=== PATIENT | female | born 1935 | race African-American/Black ===

== ENCOUNTER 2018-07-25 16:53 | Inpatient (IN) | payer MEDICARE, MEDICAID ==
[~2018-07-25] VITALS: Ht 167.6 cm; Wt 52.2 kg
[2018-07-25] MEDS ORDERED: SODIUM CHLORIDE 0.9% 500 ML IV ONE (17:19)
[2018-07-25] MEDS ORDERED: DEXTROSE 50% WATER 50ML SYRINGE IV ONE (17:30)
[2018-07-25 18:02] LABS: BASOPHILS % 0.4 % (0.0-2.0); EOSINOPHILS % 0.6 % (0.0-5.0); HEMATOCRIT. 38.4 % (36.0-48.0); HEMOGLOBIN. 12.3 g/dL (12.0-16.0); LYMPHOCYTES % 17.6 % (20.0-50.0); MEAN CORPUSCULAR HEMOGLOBIN 26.2 pg (28.0-32.0); MEAN CORPUSCULAR VOLUME 82.1 fL (81.0-99.0); MONOCYTES % 6.4 % (2.0-8.0); PLATELET 213 x1000/uL (130-400); RED BLOOD CELL COUNT 4.67 mill/uL (4.2-5.4); RED CELL DISTRIBUTION WIDTH 15.2 % (11.6-14.6)
[2018-07-25 18:08] LABS: CHLORIDE 104 mEq/L (98-107)
[2018-07-25 18:10] LABS: INR 1.1; PARTIAL THROMBOPLASTIN TIME 23.8 sec (23.4-31.0); PROTHROMBIN TIME 10.7 sec (9.1-11.1)
[2018-07-25 22:16] VITALS: BP 150/56
[2018-07-26] VITALS (7 sets, daily range): BP systolic 116–137; BP diastolic 40–55
[2018-07-26] MEDS ORDERED: DEXTROSE 50% WATER 50ML SYRINGE IV PRN (00:30)
[2018-07-26] MEDS ORDERED: ACETAMINOPHEN 325MG TABLET PO PRN (00:30)
[2018-07-26] MEDS ORDERED: MELO-106 PO (00:43)
[2018-07-26] MEDS ORDERED: BENA40TA9 PO (00:43)
[2018-07-26] MEDS ORDERED: LOPE2TAB26 PO (00:43)
[2018-07-26] MEDS ORDERED: FLUO-123 PO (00:43)
[2018-07-26] MEDS ORDERED: GLIP10TA10 PO (00:43)
[2018-07-26] MEDS ORDERED: HYDR-459 PO (00:44)
[2018-07-26] MEDS ORDERED: SIMV20TA6 PO (00:44)
[2018-07-26] MEDS ORDERED: DEXT 5%/0.45% NACL 1000ML 1,000 ML IV SCH (02:00)
[2018-07-26] MEDS: BLOOD SUGAR DIAGNOSTIC STRIP TEST SCH ×4 (05:59→21:10)
[2018-07-26 07:16] LABS: BASOPHILS % 0.5 % (0.0-2.0); EOSINOPHILS % 1.4 % (0.0-5.0); HEMATOCRIT. 35.7 % (36.0-48.0); HEMOGLOBIN. 11.5 g/dL (12.0-16.0); LYMPHOCYTES % 22.7 % (20.0-50.0); MEAN CORPUSCULAR HEMOGLOBIN 26.3 pg (28.0-32.0); MEAN CORPUSCULAR VOLUME 81.5 fL (81.0-99.0); MEAN PLATELET VOLUME 9.4 fl (7.4-10.4); MONOCYTES % 8.2 % (2.0-8.0); NEUTROPHILS % 67.2 % (40.0-76.0); PLATELET 186 x1000/uL (130-400); RED BLOOD CELL COUNT 4.38 mill/uL (4.2-5.4)
[2018-07-26 07:39] LABS: CHLORIDE 114 mEq/L (98-107)
[2018-07-26 07:48] LABS: T4 FREE 0.93 ng/dL (0.76-1.46)
[2018-07-27] VITALS: BP 107/41
[2018-07-27 04:00] VITALS: BP 132/52
[2018-07-27] MEDS: BLOOD SUGAR DIAGNOSTIC STRIP TEST SCH (07:28)
[2018-07-27 08:00] VITALS: BP 138/52
[2018-07-27 12:00] VITALS: BP 141/64
[2018-07-27 14:22] VITALS: BP 141/64
== END 2018-07-27 16:30 | disposition home or self-care (01) | DRG 639 ==
LOC: ER 17:21 → EDBEDREQ 18:15 → EDBEDREQTM 18:15 → ENRESERV 19:26 → 7WST 20:50
PROVIDERS: ADMIT Internal Medicine; ATTEND Internal Medicine
DX: E11.649 Type 2 diabetes mellitus with hypoglycemia without coma (principal); E78.00 Pure hypercholesterolemia, unspecified; E78.5 Hyperlipidemia, unspecified; I10 Essential (primary) hypertension; F17.210 Nicotine dependence, cigarettes, uncomplicated; T50.995A Adverse effect of other drugs, medicaments and biological substances, initial encounter; Y92.89 Other specified places as the place of occurrence of the external cause
CPT/HCPCS: 36415; 71045; 80048; 82962; 83036; 83735; 83880; 84439; 84443; 84484; 93005; 96361; 96374; 99285; J3490; J7040

== ENCOUNTER 2018-10-28 06:53 | Inpatient (IN) | payer MEDICARE, MEDICAID ==
[~2018-10-28] VITALS: Ht 167.6 cm; Wt 62.6 kg
[~2018-10-28 06:53] MED LIST: BENA40TA9 PO; FLUO-123 PO; HYDR-459 PO; LOPE2TAB26 PO; MELO-106 PO; SIMV20TA6 PO
[2018-10-28] MEDS ORDERED: CEFTRIAXONE 1 G PREMIX 50 ML IV ONE (08:15)
[2018-10-28] MEDS ORDERED: SODIUM CHLORIDE 0.9% 1000ML BAG (SEPSIS BOLUS) IV ONE (08:15)
[2018-10-28 08:25] LABS: HEMATOCRIT. 42.3 % (36.0-48.0); HEMOGLOBIN. 13.6 g/dL (12.0-16.0); MEAN CORPUSCULAR HEMOGLOBIN 25.9 pg (28.0-32.0); MEAN CORPUSCULAR VOLUME 80.9 fL (81.0-99.0); MEAN PLATELET VOLUME 8.8 fl (7.4-10.4); PLATELET 213 x1000/uL (130-400); RED BLOOD CELL COUNT 5.23 mill/uL (4.2-5.4); RED CELL DISTRIBUTION WIDTH 14.3 % (11.6-14.6)
[2018-10-28 08:31] LABS: CHLORIDE 106 mEq/L (98-107)
[2018-10-28] MEDS ORDERED: ALBUTEROL (0.083%) 2.5MG/3ML NEB HHN STA (08:40)
[2018-10-28] MEDS ORDERED: IPRATROPIUM BROMIDE (0.02%) 0.5MG/2.5ML NEB HHN STA (08:40)
[2018-10-28] MEDS ORDERED: LEVOFLOXACIN 750MG PREMIX 150 ML IV ONE (08:45)
[2018-10-28 08:50] LABS: PLATELET ESTIMATE NORMAL
[2018-10-28 10:12] LABS: CLARITY URINE CLEAR (CLEAR); COLOR URINE YELLOW (YELLOW); KETONES URINE 1+ (NEGATIVE); LEUKOCYTE ESTERASE URINE NEGATIVE (NEGATIVE); NITRITE URINE NEGATIVE (NEGATIVE); OCCULT BLOOD URINE 1+ (NEGATIVE); PH URINE 5.5 (4.5-8.0); PROTEIN URINE 2+ (NEGATIVE); UROBILINOGEN URINE 0.2 E.U./dL (0.2-1.0)
[2018-10-28] MEDS ORDERED: DIPHENHYDRAMINE 50MG/ML VIAL IV PRN (13:15)
[2018-10-28] MEDS ORDERED: DOCUSATE SODIUM 100MG CAPSULE PO PRN (13:15)
[2018-10-28] MEDS ORDERED: ONDANSETRON HCL 4MG/2ML INJ IV PRN (13:15)
[2018-10-28] MEDS ORDERED: LORAZEPAM 0.5MG TABLET PO PRN (13:15)
[2018-10-28] MEDS ORDERED: ACETAMINOPHEN 650MG SUPP PR PRN (13:15)
[2018-10-28] MEDS ORDERED: LEVOFLOXACIN 500MG PREMIX 100 ML IV SCH (13:15)
[2018-10-28] MEDS ORDERED: ACETAMINOPHEN 325MG TABLET PO PRN (13:15)
[2018-10-28] MEDS ORDERED: MAGNESIUM/ALUMINUM HYDROXIDE/SIMETHICONE 30ML UDC PO PRN (13:15)
[2018-10-28] MEDS ORDERED: HYDROCODONE/ACETAMINOPHEN 5/325MG TABLET PO PRN (13:15)
[2018-10-28] MEDS ORDERED: IPRATROPIUM/ALBUTEROL 0.5-3(2.5)MG/3ML NEB INH PRN (13:15)
[2018-10-28] MEDS ORDERED: DEXTROSE 50% WATER 50ML SYRINGE IV PRN (13:30)
[2018-10-28] MEDS: SODIUM CHLORIDE 0.45% 1,000 ML IV SCH (14:30)
[2018-10-28 14:45] LABS: BG BASE EXCESS -3.8 mmol/L (-2.0-2.0); BG DEOXYHEMOGLOBIN 0.8 % (0.0-5.0); BG FRACTION INSPIRED OXYGEN 32; BG HCO3 ACT 23.1 mmol/L (22.0-26.0); BG METHEMOGLOBIN 0.3 % (0.0-1.5); BG OXYGEN SATURATION 99.2 % (92.0-98.5); BG OXYHEMOGLOBIN 98.9 % (94.0-97.0); BG PCO2 49.3 mmHg (35.0-45.0); BG PH 7.288 (7.350-7.450); BG PO2 189.1 mmHg (75.0-100.0); BG SAMPLE SITE RIGHT RADIAL; BG TOTAL HEMOGLOBIN 12.4 g/dL (12.0-18.0); BG VENT MODE NASAL CANNULA
[2018-10-28] MEDS: ASPIRIN 81MG TABLET PO SCH (14:45)
[2018-10-28] MEDS: METHYLPREDNISOLONE SOD SUCC 40 MG/ML VIAL IV SCH (14:45)
[2018-10-28] MEDS ORDERED: DILTIAZEM HCL 30MG TABLET PO NR (15:00)
[2018-10-28 15:07] LABS: CANNABINOID URINE SCREEN NEGATIVE (NEGATIVE); OPIATES URINE SCREEN NEGATIVE (NEGATIVE)
[2018-10-28 15:08] LABS: *AMPHETAMINES SCREEN URINE NEGATIVE (NEGATIVE); *BARBITURATES SCREEN URINE NEGATIVE (NEGATIVE); *BENZODIAZEPINES SCREEN URINE NEGATIVE (NEGATIVE); *COCAINE SCREEN URINE NEGATIVE (NEGATIVE); METHADONE URINE SCREEN NEGATIVE (NEGATIVE); PHENCYCLIDINE URINE SCREEN NEGATIVE (NEGATIVE)
[2018-10-28] MEDS: CLONIDINE 0.1MG TABLET PO PRN (17:41)
[2018-10-28 17:45] VITALS: BP 186/97
[2018-10-28] MEDS: GUAIFENESIN 200MG/10ML SUGAR FREE UDC PO PRN (17:53)
[2018-10-28] MEDS: INSULIN LISPRO 100 UNITS/ML SUBCUT SCH ×2 (18:48→21:25)
[2018-10-28 20:00] VITALS: BP 128/59
[2018-10-28] MEDS ORDERED: LEVOFLOXACIN 500MG PREMIX 100 ML IV NR (20:00)
[2018-10-28] MEDS: IPRATROPIUM/ALBUTEROL 0.5-3(2.5)MG/3ML NEB INH SCH (20:33)
[2018-10-28] MEDS ORDERED: NA PHOS,M-B/NA PHOS,DI-BA ENEMA 118ML PR PRN (21:00)
[2018-10-28] MEDS: BLOOD SUGAR DIAGNOSTIC STRIP TEST SCH (21:00)
[2018-10-28] MEDS: OSELTAMIVIR 75MG CAPSULE PO SCH (21:10)
[2018-10-28] MEDS: METRONIDAZOLE 500MG TABLET PO SCH (21:10)
[2018-10-28] MEDS: DILTIAZEM HCL 30MG TABLET PO SCH (21:10)
[2018-10-28] MEDS: ENOXAPARIN 40MG/0.4ML SYR SUBCUT SCH (21:11)
[2018-10-28 23:31] LABS: CREATINE KINASE MB FRACTION 4.3 ng/mL (0.5-3.6)
[2018-10-29] VITALS: BP 140/68
[2018-10-29] MEDS: METHYLPREDNISOLONE SOD SUCC 40 MG/ML VIAL IV SCH ×4 (00:18→23:57)
[2018-10-29] MEDS: IPRATROPIUM/ALBUTEROL 0.5-3(2.5)MG/3ML NEB INH SCH ×2 (02:31→21:00)
[2018-10-29 04:00] VITALS: BP 140/68
[2018-10-29] MEDS: METRONIDAZOLE 500MG TABLET PO SCH ×3 (06:24→21:52)
[2018-10-29] MEDS: DILTIAZEM HCL 30MG TABLET PO SCH (06:24)
[2018-10-29] MEDS: INSULIN LISPRO 100 UNITS/ML SUBCUT SCH ×5 (06:27→20:44)
[2018-10-29] MEDS: GUAIFENESIN 200MG/10ML SUGAR FREE UDC PO PRN (06:54)
[2018-10-29] MEDS: PANTOPRAZOLE 40MG DR TABLET PO SCH (06:54)
[2018-10-29 07:33] LABS: BASOPHILS % 0.2 % (0.0-2.0); HEMATOCRIT. 35.2 % (36.0-48.0); HEMOGLOBIN. 11.4 g/dL (12.0-16.0); LYMPHOCYTES % 10.7 % (20.0-50.0); MEAN CORPUSCULAR HEMOGLOBIN 26.1 pg (28.0-32.0); MEAN CORPUSCULAR VOLUME 80.6 fL (81.0-99.0); MEAN PLATELET VOLUME 9.1 fl (7.4-10.4); MONOCYTES % 2.8 % (2.0-8.0); NEUTROPHILS % 86.3 % (40.0-76.0); PLATELET 179 x1000/uL (130-400); RED BLOOD CELL COUNT 4.37 mill/uL (4.2-5.4)
[2018-10-29 08:00] VITALS: BP 170/73
[2018-10-29 08:17] LABS: CHLORIDE 107 mEq/L (98-107)
[2018-10-29 08:29] LABS: HDL CHOLESTEROL 62 mg/dL (40-59)
[2018-10-29 08:30] LABS: LDL CHOLESTEROL 73 mg/dL (5-100); T4 FREE 1.27 ng/dL (0.76-1.46)
[2018-10-29] MEDS: ASPIRIN 81MG TABLET PO SCH (09:22)
[2018-10-29] MEDS: OSELTAMIVIR 75MG CAPSULE PO SCH (09:22)
[2018-10-29] MEDS: CLONIDINE 0.1MG TABLET PO PRN (09:22)
[2018-10-29] MEDS: SODIUM CHLORIDE 0.45% 1,000 ML IV SCH (09:24)
[2018-10-29 12:00] VITALS: BP 160/81
[2018-10-29] MEDS: BLOOD SUGAR DIAGNOSTIC STRIP TEST SCH ×3 (12:21→20:19)
[2018-10-29] MEDS: DILTIAZEM HCL 60MG TABLET PO SCH ×2 (13:22→21:52)
[2018-10-29 16:00] VITALS: BP 147/60
[2018-10-29 16:00] LABS: BG BASE EXCESS 3.7 mmol/L (-2.0-2.0); BG CARBOXYHEMOGLOBIN 0.3 % (0.5-1.5); BG DEOXYHEMOGLOBIN 8.6 % (0.0-5.0); BG FRACTION INSPIRED OXYGEN 21; BG HCO3 ACT 27.7 mmol/L (22.0-26.0); BG METHEMOGLOBIN 0.3 % (0.0-1.5); BG OXYGEN SATURATION 91.3 % (92.0-98.5); BG OXYHEMOGLOBIN 90.8 % (94.0-97.0); BG PCO2 39.5 mmHg (35.0-45.0); BG PH 7.463 (7.350-7.450); BG PO2 59.3 mmHg (75.0-100.0); BG SAMPLE SITE LEFT BRACHIAL; BG TOTAL HEMOGLOBIN 12.5 g/dL (12.0-18.0); BG VENT MODE ROOM AIR
[2018-10-29 20:00] VITALS: BP 126/53
[2018-10-29] MEDS: ENOXAPARIN 40MG/0.4ML SYR SUBCUT SCH (20:36)
[2018-10-29] MEDS: OSELTAMIVIR 30MG CAPSULE PO SCH (20:41)
[2018-10-30] VITALS: BP 133/58
[2018-10-30] MEDS: IPRATROPIUM/ALBUTEROL 0.5-3(2.5)MG/3ML NEB INH SCH ×2 (01:41→07:22)
[2018-10-30] MEDS: SODIUM CHLORIDE 0.45% 1,000 ML IV SCH (01:53)
[2018-10-30 04:00] VITALS: BP 121/52
[2018-10-30] MEDS: DILTIAZEM HCL 60MG TABLET PO SCH ×2 (06:16→13:43)
[2018-10-30] MEDS: METRONIDAZOLE 500MG TABLET PO SCH ×2 (06:16→14:07)
[2018-10-30] MEDS: PANTOPRAZOLE 40MG DR TABLET PO SCH (06:16)
[2018-10-30] MEDS: METHYLPREDNISOLONE SOD SUCC 40 MG/ML VIAL IV SCH ×2 (06:16→14:07)
[2018-10-30] MEDS: BLOOD SUGAR DIAGNOSTIC STRIP TEST SCH ×2 (06:17→12:10)
[2018-10-30] MEDS: INSULIN LISPRO 100 UNITS/ML SUBCUT SCH ×2 (06:17→13:18)
[2018-10-30 08:00] VITALS: BP 137/59
[2018-10-30 08:13] LABS: HEMATOCRIT 36.2 % (36.0-48.0); HEMOGLOBIN 11.6 g/dL (12.0-16.0); PLATELET 178 x1000/uL (130-400); RED BLOOD CELL COUNT 4.46 mill/uL (4.2-5.4); RED CELL DISTRIBUTION WIDTH 14.2 % (11.6-14.6)
[2018-10-30] MEDS: ASPIRIN 81MG TABLET PO SCH (09:16)
[2018-10-30] MEDS: OSELTAMIVIR 30MG CAPSULE PO SCH (09:16)
[2018-10-30 09:55] LABS: CHLORIDE 105 mEq/L (98-107)
[2018-10-30 12:00] VITALS: BP 149/52
[2018-10-30 15:03] VITALS: BP 149/52
[2018-10-30] MEDS ORDERED: LEVOFLOXACIN 250MG PREMIX 50 ML IV SCH (20:00)
== END 2018-10-30 16:02 | disposition home health service (06) | DRG 193 ==
LOC: ER 07:30 → 8WST 11:38 → EDBEDREQ 11:44 → EDBEDREQSVC 11:44 → ENRESERV 16:35
PROVIDERS: ADMIT Internal Medicine; ATTEND Internal Medicine
DX: J10.1 Influenza due to other identified influenza virus with other respiratory manifestations (principal); J96.00 Acute respiratory failure, unspecified whether with hypoxia or hypercapnia; N39.0 Urinary tract infection, site not specified; I24.9 Acute ischemic heart disease, unspecified; K52.9 Noninfective gastroenteritis and colitis, unspecified; F17.200 Nicotine dependence, unspecified, uncomplicated; R07.89 Other chest pain; R80.9 Proteinuria, unspecified; I10 Essential (primary) hypertension; E86.0 Dehydration; K80.20 Calculus of gallbladder without cholecystitis without obstruction; R00.0 Tachycardia, unspecified; E78.5 Hyperlipidemia, unspecified; B96.89 Other specified bacterial agents as the cause of diseases classified elsewhere; E11.65 Type 2 diabetes mellitus with hyperglycemia; J40 Bronchitis, not specified as acute or chronic; Z90.710 Acquired absence of both cervix and uterus; Z79.899 Other long term (current) drug therapy
CPT/HCPCS: 36415; 36600; 71045; 74176; 80048; 80061; 80305; 82375; 82550; 82553; 82805; 82962; 83036; 83605; 84145; 84439; 84443; 84484; 85027; 87804; 93005; 93306; 93970; 94640; 96365; 96366; 97162; 99291; J1650; J1815; J1956; J2920; J7030; J7611; J7620